=== PATIENT | male | born 1995 | race Two or more races ===

== ENCOUNTER 2024-06-08 22:17 | Emergency (ER) | payer OTHER, SELFPAY ==
[2024-06-08 22:17] VITALS: BMI 26.8
[2024-06-08 22:25] VITALS: BP 141/85; PULSE 106; RESP 18; TEMP 37.2; O2SAT 95
--- NOTE | 2024-06-08 22:26 | EDRME_ITS ---
Rapid Medical Screening Exam [facility] Arrival date/time: 06/08/24 22:17 29M with no significant PMH presents to ED with 2 days of N/V, gen ab pain/cramping, and non-bloody diarrhea. Chief Complaint: Nausea/Vomiting/Diarrhea Vital signs: Vital Signs Temperature 99 F 06/08/24 22:25 Pulse Rate 106 H 06/08/24 22:25 Respiratory Rate 18 06/08/24 22:25 Blood Pressure 141/85 H 06/08/24 22:25 Pulse Oximetry (%) 95 06/08/24 22:25 Oxygen Delivery Method Room Air 06/08/24 22:25
[2024-06-08] MEDS: ONDANSETRON ODT 4 MG TABRAP PO (22:50)
[2024-06-08 22:53] LABS: Basophils # (Auto) 0.1 Thou/mm3 (0.0-0.2); Basophils % (Auto) 0 % (0-2.5); Eosinophils % (Auto) 0 % (0-10); Hematocrit 46.2 % (41.0-53.0); Hemoglobin 15.8 g/dL (13.5-16.0); Immature Granulocytes % (Auto) 0 % (0-0); Immature Granulocytes Auto 0.07 Thou/mm3 (0.00-0.00); Lymphocytes # (Auto) 0.4 Thou/mm3 (1.0-4.8); Lymphocytes % (Auto) 2 % (10-50); Mean Corpuscular HGB Conc 34.2 g/dl (31.0-37.0); Mean Corpuscular Hemoglobin 29.9 pg (25.0-35.0); Mean Corpuscular Volume 88 fL (80-100); Monocytes # (Auto) 0.4 Thou/mm3 (0.0-0.8); Monocytes % (Auto) 2 % (0-12); Neutrophils # (Auto) 17.6 Thou/mm3 (1.8-7.7); Neutrophils % (Auto) 95 % (37-80); Nucleated Red Blood Cell % 0 /100 WBC (0); Platelet Count 427 Thou/mm3 (140-440); RDW Standard Deviation 42.4 fL (35.1-43.9); Red Blood Count 5.28 Miln/mm3 (4.50-5.90); White Blood Count 18.5 Thou/mm3 (3.8-10.6)
[2024-06-08 23:12] LABS: Alanine Aminotransferase 47 U/L (10-49); Albumin, Serum 5.1 gm/dL (3.5-5.0); Albumin/Globulin Ratio 1.8 (1.2-2.2); Alkaline Phosphatase 88 U/L (46-116); Anion Gap 7 (7-16); Aspartate Amino Transferase 24 U/L (0-34); BUN/Creatinine Ratio 17 Ratio (12-20); Bilirubin,Total 1.5 mg/dL (0.3-1.2); Blood Urea Nitrogen 19 mg/dL (9-23); Carbon Dioxide 29.3 mMol/L (20.0-31.0); Chloride 103 mMol/L (98-107); Creatinine (Component) 1.1 mg/dL (0.6-1.3); Estimated Creatinine Clearance 100.5 mL/min (>60); Globulin 2.8 gm/dL (2.3-3.5); Glucose 144 mg/dL (74-106); Lipase 40 U/L (12-53); Osmolality,Calculated 282 (275-295); Potassium 3.6 mMol/L (3.4-5.1); Sodium 139 mMol/L (136-145); Total Protein 7.9 gm/dL (5.7-8.2); eGFR > 60 See Note
[2024-06-09 00:29] LABS: Collection Type, Urine Clean Catch
[2024-06-09 00:53] LABS: Amphetamine/Methamp Scrn,U Negative (Negative); Barbiturate Screen,Urine Negative (Negative); Benzodiazepines Screen,Urine Negative (Negative); Benzoylecgonine Screen, Ur Negative (Negative); Fentanyl Screen,Urine Negative (Negative); Opiate Screen,Urine Negative (Negative); THC Screen,Urine Negative (Negative)
[2024-06-09 00:57] LABS: Bacteria,Urine Rare; Bilirubin,Urine Negative (Negative); Blood,Urine Negative (Negative); Clarity,Urine Clear (Clear/Hazy); Color,Urine Yellow (Lt Yel-Yel); Glucose, Urine Negative (Negative); Ketones,Urine Trace (Negative); Leukocyte Esterase,Urine Negative (Negative); Nitrite,Urine Negative (Negative); Protein,Urine 1+ (Neg - Trace); RBC,Urine 6 /hpf (0-3); Specific Gravity,Urine 1.036 (1.001-1.035); Squamous Epithelial Cell,Urine < 1 /hpf (0-5); Urobilinogen,Urine Negative mg/dL (0.0-1.0); WBC,Urine 2 /hpf (0-5)
[2024-06-09 01:34] VITALS: BP 131/78; PULSE 100; RESP 16; TEMP 37.2; O2SAT 96
--- NOTE | 2024-06-09 01:39 | EKG_ITS ---
[facility] Test Date: 2024-06-09 Pat Name: VICTORINA LEUNG Department: Room: - Gender: Male [employer] Operator: : 1995 Requested By: Shaun Taylor Order Number: [id number] Reading MD: Shaun Taylor Measurements Intervals [place] Rate: 95 P: 46 IA: 155 QRS: -36 QRSD: 90 T: 35 QT: 322 QTc: 406 Interpretive Statements SINUS RHYTHM MARKED LEFT AXIS DEVIATION [QRS AXIS < -30] PATTERN CONSISTENT WITH PULMONARY DISEASE Compared to ECG 05/03/2023 01:05:55 No significant changes /store/S0/[id number].pdf
[2024-06-09] MEDS: ONDANSETRON INJ 2 MG/ML INJ 2 ML 4 MG IV (01:54)
[2024-06-09] MEDS: MECLIZINE HCL 25 MG TABLET PO (01:56)
[2024-06-09] MEDS: FAMOTIDINE INJ 10 MG/ML VIAL 2 ML 20 MG IVP (01:57)
[2024-06-09] MEDS: SODIUM CHLORIDE 0.9% 1000 ML 1,000 ML 999 ML IV ×2 (02:00→04:17)
[2024-06-09 02:02] VITALS: PULSE 99
--- NOTE | 2024-06-09 02:03 | XR_ITS ---
Examination: AP chest single view Technique one AP portable upright chest single view Exam date and time: June 09, 2024 0215 hrs. Comparison October 19, 2022 Indications: Fever today with tachycardia Findings: Normal heart size Lungs are clear. The osseous structures are intact Impression: No active disease
--- NOTE | 2024-06-09 02:06 | EDNOTE_ITS ---
Nausea/Vomit./Diarrhea-RME/HPI General Chief complaint: Nausea/Vomiting/Diarrhea Stated complaint: N/V/ DIARRHEA X2DAYS Time Seen by Provider: 06/08/24 22:57 Arrival date/time: 06/08/24 22:17 RME / HPI RME / HPI Narrative: 06/08/24 22:17 29M with no significant PMH presents to ED with 2 days of N/V, gen ab pain/cramping, and non-bloody diarrhea. ----- Dr. Tafoya?s Main ED Evaluation: 29yo male presents to the ED for complaints of N/V/D. 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 He states they stopped in [place] to eat on Wednesday at 2300 and started having abdominal pain an hour later. Yesterday on the drive from [place] to [place], he had to stop 3 times and had loose diarrhea each time. He endorses associated nausea and a decreased appetite. He has not ate anything since Wednesday. He states today the room started spinning and had multiple episodes of vomiting with worsening abdominal pain, so he came in for evaluation. Patient last took Zofran at 1830 and Dramamine at 2030 without any alleviation of symptoms. Denies any falls or injuries. Denies any fever, chills or any other associated symptoms. Related Data Previous Rx's ?Medication ?Instructions ?Recorded acetaminophen 500 mg tablet 1,000 mg (2 x 500 mg) PO QID PRN 10/19/22 (Tylenol Extra Strength) fever or pain #30 tabs metoclopramide HCl 5 mg tablet 5 mg PO BID #60 tabs 10/19/22 (Reglan) pantoprazole 40 mg tablet,delayed 40 mg PO QDAY #30 tabs 10/19/22 release (Protonix) ibuprofen 600 mg tablet 600 mg PO TID PRN pain #30 tabs 07/08/23 lidocaine 5 % topical patch 2 patch topical QDAY #15 ea 07/08/23 (Lidoderm) diphenhydramine HCl 25 mg capsule 25 mg PO TID PRN allergic reaction 07/10/23 (Allergy (diphenhydramine)) #30 caps ibuprofen 600 mg tablet 600 mg PO Q6H PRN pain #30 tabs 09/14/23 cholestyramine (with sugar) 4 gram 4 g PO QDAY #40 grams 03/25/24 oral powder (Questran) dicyclomine 20 mg tablet 20 mg PO QID PRN abdominal pain 03/25/24 #30 tabs acetaminophen 500 mg capsule 1,000 mg (2 x 500 mg) PO Q6H PRN 06/09/24 fever or pain 5 days #20 caps ibuprofen 600 mg tablet 600 mg PO Q6H PRN fever or pain 5 06/09/24 days #20 tabs meclizine 25 mg tablet 25 mg PO BID PRN dizziness #14 tabs 06/09/24 ondansetron 4 mg disintegrating 4 mg PO Q6H PRN nausea and 06/09/24 tablet vomiting #10 tabs Allergies Allergy/AdvReac Type Severity Reaction Status Date / Time azithromycin Allergy Intermediate Hives Verified 12/24/23 22:00 Review of Systems Review of Systems Systems Reviewed: All systems reviewed, normal except as documented Past Medical History Past Medical History NEUROLOGIC: Negative Neurological Disorders or Seizures CARDIAC: Negative Cardiac Disorders, Congestive Heart Failure or Hypertension RESPIRATORY: Negative Chronic Obstructive Pulmonary Disease (COPD) or Asthma GASTROINTESTINAL: Positive Gastrointestinal Disorders and Irritable Bowel GENITOURINARY: Positive Genitourinary Disorders; Negative Renal Disease MUSCULOSKELETAL: Negative Musculoskeletal Disorders ENDOCRINE: Negative Endocrine Disorders, Diabetes Mellitus Type 1 or Diabetes Mellitus Type 2 HEMATOLOGIC: Negative Sickle Cell Disease PSYCHO/SOCIAL: Positive Attention Deficit Hyperactivity Disorder OTHER HISTORY: Negative Blood Transfusions, Anesthesia Reactions or Cancer Surgical History SURGICAL: Positive Arthroscopy Social History SMOKING STATUS: Never smoker SUBSTANCE USE: does not use ED Exam Narrative Physical exam: GENERAL APPEARANCE: alert and oriented x 4, well-developed, well-nourished, no acute distress VITALS: All vitals were reviewed and the pulse ox is 96% on room air, which is normal according to my interpretation. HEENT: Normocephalic, atraumatic; pupils equal, round, reactive to light, no nystagmus; EOMI; mucous membranes pink, moist; oropharynx clear NECK: Supple LUNGS: CTABL; no wheezes, no rales, no rhonchi HEART: Tachycardic, regular rhythm; normal S1, S2; no murmurs ABDOMEN: non distended; normal BS; soft, no tenderness, no guarding, no rebound; no masses, no organomegaly, no hernia BACK: no CVA tenderness EXTREMITIES: atraumatic; no edema NEUROLOGIC: awake; alert and oriented x4; cranial nerves II-XII grossly intact; no focal sensory or motor deficits; no dysmetria, no intentional tremor, no steccato speech, no dysdiadochokinesia PSYCHIATRIC: appropriate mood and affect SKIN: warm, dry, normal color; no rashes Course Course Course Narrative: CXR is ordered to r/o aspiration pneumonia. 0409: Patient states he feels better compared to when he came in. HR is 105. Additional NS IVF ordered then the patient can be discharged home. Quality Measures none Orders Category Date Time Status Compressed Gas Tester Q4H START 00 Care 06/09/24 01:39 Completed Continuous Pulse Oximetry NOW Care 06/09/24 01:39 Completed EKG (ED ONLY) *Do not use* NOW Care 06/09/24 01:39 Completed IV [Insert IV] NOW Care 06/09/24 01:39 Completed EKG (ED Only) Stat Exams 06/09/24 01:39 Draft XR chest 1V portable Stat Exams 06/09/24 02:03 Taken Alcohol, Blood Medical Stat Lab 06/08/24 22:47 Completed CBC Stat Lab 06/08/24 22:47 Completed CMP [Comprehensive Metabolic Panel] Stat Lab 06/08/24 22:47 Completed Drug Screen,Urine Stat Lab 06/08/24 23:43 Completed Lipase Stat Lab 06/08/24 22:47 Completed Magnesium Stat Lab 06/08/24 22:47 Completed UA [Urinalysis] Stat Lab 06/08/24 23:43 Completed Acetaminophen Ivpb [Ofirmev Inj] Med 06/09/24 02:04 Discontinued 1,000 mg in 100 ml IV Q6HR Famotidine Inj [Pepcid Inj] Med 06/09/24 01:39 Discontinued 20 mg IVP X1 ONE Meclizine HCl [Antivert] Med 06/09/24 01:39 Discontinued 25 mg PO X1 ONE Ondansetron Inj [Zofran Inj] Med 06/09/24 01:40 Discontinued 4 mg IV X1 ONE Ondansetron Odt [Zofran Odt] Med 06/08/24 22:26 Discontinued 4 mg PO X1 ONE Sodium Chloride 0.9% 1000 ml [Ns] 1,000 ml Med 06/09/24 01:39 Discontinued IV 999 mls/hr Sodium Chloride 0.9% 1000 ml [Ns] 1,000 ml Med 06/09/24 04:11 Discontinued IV 999 mls/hr Vital Signs Vital signs: Vital Signs Temperature 99 F 06/08/24 22:25 Pulse Rate 106 H 06/08/24 22:25 Respiratory Rate 18 06/08/24 22:25 Blood Pressure 141/85 H 06/08/24 22:25 Pulse Oximetry (%) 95 06/08/24 22:25 Oxygen Delivery Method Room Air 06/08/24 22:25 Nausea/Vomiting/Diarrhea Patient data External records reviewed:: [facility] previous records (Per chart review, patient was seen here on 03/25/24 for diarrhea.) Clinical information provided by:: patient Social determinants that could affect healthcare access:: none Patient has the following chronic illnesses:: ADHD How is presenting disease/condition affected by chronic disease/condition?: uneffected by Evaluation data The following diagnostics were reviewed and interpreted by me:: lab results, radiology exam(s) and EKG tracing(s) Lab and/or radiology exams considered but not ordered:: none Interpretation Summary: WBC count is elevated at 18.5, CMP is normal, Lipase is normal, UDS is negative, UA shows 1+ protein, 6 RBCs, and rare bacteria, according to my interpretation. CXR is negative for rib fractures, normal cardiac silhouette, no infiltrates, sharp diaphragmatic edge, according to my interpretation. EKG done at 0205, NSR, rate of 95, left axis deviation, no ectopy, no acute ischemia, QTc: 375, WRS: 90, according to my interpretation. Medications / Prescriptions Medications / Prescriptions considered but not ordered:: none Medication administrations:: Medication Administration History Discontinued Medications Famotidine (Famotidine Inj 10 Mg/Ml Vial 2 Ml) 20 mg IVP X1 ONE Stop: 06/09/24 01:40 Last Admin: 06/09/24 01:57 Dose: 20 mg Documented By: JORGE Sodium Chloride (Ns) 1,000 mls @ 999 mls/hr IV .Q1H1M ONE Stop: 06/09/24 02:39 Last Infusion: 06/09/24 03:51 Dose: Infused Documented By: Admin: 06/09/24 02:00 Dose: 999 mls/hr Documented By: JORGE Acetaminophen (Ofirmev Inj) 1,000 mg in 100 mls @ 250 mls/hr IV Q6HR EUGENIO Stop: 06/09/24 18:23 Last Infusion: 06/09/24 02:55 Dose: Infused Documented By: Admin: 06/09/24 02:19 Dose: 250 mls/hr Documented By: JORGE Sodium Chloride (Ns) 1,000 mls @ 999 mls/hr IV .Q1H1M ONE Stop: 06/09/24 05:11 Last Infusion: 06/09/24 05:12 Dose: Infused Documented By: Admin: 06/09/24 04:17 Dose: 999 mls/hr Documented By: JORGE Meclizine HCl (Meclizine Hcl 25 Mg Tablet) 25 mg PO X1 ONE Stop: 06/09/24 01:40 Last Admin: 06/09/24 01:56 Dose: 25 mg Documented By: JORGE Ondansetron HCl (Ondansetron Odt 4 Mg Tabrap) 4 mg PO X1 ONE; Protocol Stop: 06/08/24 22:27 Last Admin: 06/08/24 22:50 Dose: 4 mg Documented By: MINESH Ondansetron HCl (Ondansetron Inj 2 Mg/Ml Inj 2 Ml) 4 mg IV X1 ONE; Protocol Stop: 06/09/24 01:41 Last Admin: 06/09/24 01:54 Dose: 4 mg Documented By: JORGE see above Consultations Consultation(s) initiated? (list below): No Diagnosis Nausea Differential Diagnosis: food poisoning, gastroenteritis, dehydration and other (electrolyte abnormality) Most likely diagnosis given after review of the tests above:: see below Admission Indicated Admission indicated?: not indicated Admission Request Was there a request for admission?: No Disposition Plan Disposition Plan: Discharge Discharge Attestation Discharge Attestation: The patient and all family members were given an opportunity to ask questions and understood the discharge instructions. Discharge instructions specifically effects, indications for sooner follow up or return to the emergency department, and the expected course of current diagnosis. Patient condition: Stable Discharge Plan Plan Patient Disposition: HOME (Self Care) Disposition Comment: Stable for discharge Patient condition on transfer: Stable Prescriptions/Referrals Prescriptions/Med Rec: New ondansetron 4 mg tablet,disintegrating 4 mg PO Q6H PRN (Reason: nausea and vomiting) Qty: 10 0RF acetaminophen 500 mg capsule 1,000 mg PO Q6H PRN (Reason: fever or pain) 5 Days Qty: 20 0RF ibuprofen 600 mg tablet 600 mg PO Q6H PRN (Reason: fever or pain) 5 Days Qty: 20 0RF meclizine 25 mg tablet 25 mg PO BID PRN (Reason: dizziness) Qty: 14 0RF No Action pantoprazole [Protonix] 40 mg Tablet,Delayed Release (Dr/Ec) 40 mg PO QDAY Qty: 30 2RF metoclopramide HCl [Reglan] 5 mg Tablet 5 mg PO BID Qty: 60 2RF lidocaine [Lidoderm] 5 % adhesive patch,medicated 2 patch topical QDAY Qty: 15 0RF Rx Instructions: leave on most painful area for up to 12 hrs ibuprofen 600 mg tablet 600 mg PO TID PRN (Reason: pain) Qty: 30 0RF ibuprofen 600 mg tablet 600 mg PO Q6H PRN (Reason: pain) Qty: 30 0RF acetaminophen [Tylenol Extra Strength] 500 mg tablet 1,000 mg PO QID PRN (Reason: fever or pain) Qty: 30 0RF diphenhydramine HCl [Allergy (diphenhydramine)] 25 mg capsule 25 mg PO TID PRN (Reason: allergic reaction) Qty: 30 0RF cholestyramine (with sugar) [Questran] 4 gram powder 4 g PO QDAY Qty: 40 0RF Rx Instructions: administer w/meal; avoid other meds within 1hr before or 4-6hr after dose dicyclomine 20 mg tablet 20 mg PO QID PRN (Reason: abdominal pain) Qty: 30 0RF Referrals: Juan Miguel Moran DO [Primary Care Provider] - In 1 week Problem List Clinical Impression: Vomiting, Diarrhea, Vertigo Patient/Caregiver Discharge Instructions Discharge Activity: activity as tolerated Education Materials: Vertigo Medicine Tx, ED Diarrhea, Unknown Cause, ED Vomiting (Adult) Additional Instructions: Please return to the emergency department for any worsening or any further medical problem You should be drinking plenty of fluids, including Gatorade, broth, juice as well as some water. If you develop abdominal pain please return to the ER Please take Tylenol and Motrin as well as all medications as directed. These for fevers and/or pain. Take meclizine if you develop vertigo again. Please follow-up with your primary care doctor within the next several days Print Language: Armenian Stand Alone Forms: [employer] Award Info., Work/School Release, Patient Portal Info Letter
[2024-06-09 02:10] LABS: Alcohol, Blood Medical < 3.0 mg/dL (0-10.0); Magnesium 1.6 mg/dL (1.6-2.6)
[2024-06-09] MEDS: ACETAMINOPHEN IVPB 1,000 MG/100 ML VIAL 250 MG IV (02:19)
[2024-06-09 05:12] VITALS: BP 113/68; PULSE 101; RESP 16; O2SAT 97
== END 2024-06-09 05:13 | disposition home or self-care (01) ==
PROVIDERS: Physician Assistant; Emergency Provider Emergency Medicine; PCP Family Medicine
DX: R11.2 Nausea with vomiting, unspecified (principal); R19.7 Diarrhea, unspecified; R42 Dizziness and giddiness; R50.9 Fever, unspecified; R94.31 Abnormal electrocardiogram [ECG] [EKG]; D72.829 Elevated white blood cell count, unspecified
CPT/HCPCS: 36415; 71045; 80053; 80307; 80320; 81001; 83690; 83735; 85025; 93005; 96361; 96365; 96375; 99284; J0131; J2405; J3490; J7030; Q0162; A9270; G0480